=== PATIENT | female | born 1965 | race Caucasian/White ===

== ENCOUNTER 2020-02-12 15:22 | Emergency (ER) | payer OTHER ==
[2020-02-12] MEDS ORDERED: NA CHLORIDE 0.9% 1,000 ML ONE (16:08)
[2020-02-12 16:29] LABS: Absolute Lymphocytes (CBC) 1.9 K/uL (0.7-4.9); Basophils % 1.3 % (0-1.3); Hematocrit 42.3 % (36.0-45.0); Lymphocytes % 27.7 % (15.3-44.8); MPV 10.1 fL (7.6-11.3)
[2020-02-12 16:47] LABS: ALT/SGPT 29 U/L (12-78); AST/SGOT 14 U/L (15-37); Albumin 3.4 g/dL (3.4-5.0); Alkaline Phosphatase 117 U/L (45-117); BUN Blood Urea Nitrogen 11 mg/dL (7-18); Bicarbonate 27 mmol/L (21-32); Bilirubin Direct < 0.1 mg/dL (0-0.2); Bilirubin Total 0.2 mg/dL (0.2-1.0); Glucose Level 335 mg/dL (74-106); Lipase 142 U/L (73-393); Potassium 4.7 mmol/L (3.5-5.1); Protein, Total 7.6 g/dL (6.4-8.2); Sodium Level 137 mmol/L (136-145)
--- NOTE | 2020-02-12 17:29 | RAD REPORT ---
EXAM DESCRIPTION: CT - Abdomen Pelvis W Contrast - 02/12/2020 5:07 pm CLINICAL HISTORY: Abdominal pain COMPARISON: none. TECHNIQUE: Computed axial tomography of the abdomen pelvis was obtained. 100 cc Isovue-300 was admin istered intravenously. Oral contrast was not requested which limits evaluation of bowel. All CT scans are performed using dose optimization technique as appropriate and may include automated exposure control or mA/KV adjustment according to patient size. FINDINGS: Fatty liver The spleen, pancreas, adrenal and kidneys appear unremarkable. There is no evidence of diverticulitis. Normal appendix The wall of portions of the colon mildly to moderately thickened. This probably indicates a colitis IMPRESSION: Rskl-hv-[id number] colitis.
--- NOTE | 2020-02-12 17:39 | ER ---
Nurse's Notes [facility] Name: Maria Isabel Li Age: 54 yrs Sex: Female : 1965 Arrival Date: 02/12/2020 Time: 15:[address] Private MD: Diagnosis: Colitis;Hyperglycemia, unspecified Presentation: 02/11 15:28 Chief complaint: Patient states: dry cough, diarrhea, abd pain and fatigue that began ss 2-3 days ago. Coronavirus screen: Patient denies fever greater than 100.4F, cough, shortness of breath, or difficulty breathing. Proceed with normal triage process. Ebola Screen: Patient denies exposure to infectious person. Patient denies travel to an Ebola-affected area in the 21 days before illness onset. Initial Sepsis Screen: Does the patient meet any 2 criteria? HR > 90 bpm. Does the patient have a suspected source of infection? No. Patient's initial sepsis screen is negative. Risk Assessment: Do you want to hurt yourself or someone else? Patient reports no desire to harm self or others. 15:28 Method Of Arrival: Ambulatory ss 15:28 Acuity: ANT 3 ss 16:28 Onset of symptoms was February 09, 2020. vc Triage Assessment: 16:26 General: Appears in no apparent distress. uncomfortable, ill, Behavior is calm, vc cooperative, appropriate for age. Pain: Complains of pain in right lower quadrant. GI: Reports lower abdominal pain, bloating, diarrhea. Historical: - Allergies: 15:58 PENICILLINS; ss 15:58 ACETAMINOPHEN; ss - PMHx: 15:58 Chronic pain; Diabetes - IDDM; Fibromyalgia; High Cholesterol; ss - Immunization history:: Adult Immunizations up to date. - Social history:: Smoking status: Patient denies any tobacco usage or history of. Screenin:25 Abuse screen: Denies threats or abuse. Nutritional screening: No deficits noted. vc Tuberculosis screening: No symptoms or risk factors identified. Fall Risk None identified. Assessment: 16:27 GI: Bowel sounds present X 4 quads. Abd is soft Abdomen is tender to palpation X 4 vc quads. 16:30 General: Appears in no apparent distress. uncomfortable, ill, Behavior is calm, vc cooperative, appropriate for age. Pain: Complains of pain in right lower quadrant. Neuro: Level of Consciousness is awake, alert, obeys commands, Oriented to person, place, time, situation. Cardiovascular: Patient's skin is warm and dry. Respiratory: Airway is patent Respiratory effort is even, unlabored, Respiratory pattern is regular, symmetrical. : No signs and/or symptoms were reported regarding the genitourinary system. EENT: No signs and/or symptoms were reported regarding the EENT system. Derm: No signs and/or symptoms reported regarding the dermatologic system. Musculoskeletal: Range of motion: intact in all extremities. 17:30 Reassessment: Patient appears in no apparent distress at this time. Patient and/or vc family updated on plan of care and expected duration. Pain level reassessed. Patient is alert, oriented x 3, equal unlabored respirations, skin warm/dry/pink. 18:30 Reassessment: discharge pending fluids infusing. vc 18:30 Reassessment: Patient and/or family updated on plan of care and expected duration. Pain vc level reassessed. Patient is alert, oriented x 3, equal unlabored respirations, skin warm/dry/pink. Patient denies pain at this time. Patient states feeling better. Patient states symptoms have improved. Vital Signs: 15:28 BP 91 / 67; Pulse 116; Resp 16; Temp 98.3; Pulse Ox 98% on R/A; Weight 99.79 kg; Height ss 5 ft. 6 in. (167.64 cm); Pain 4/10; 16:30 BP 114 / 84; Pulse 95; Resp 15; Pulse Ox 98% on R/A; vc 18:00 BP 110 / 82; Pulse 89; Pulse Ox 100% on R/A; vc 15:28 Body Mass Index 35.51 (99.79 kg, 167.64 cm) ED Course: 15:26 Patient arrived in ED. mr 15:32 [facility] kb 15:32 Ridge Macias MD is Attending Physician. kb 15:52 Saniya Martínez RN is Primary Nurse. vc 15:58 Triage completed. ss 15:58 Arm band placed on right wrist. ss 16:29 Patient has correct armband on for positive identification. Placed in gown. Bed in low vc position. Pulse ox on. NIBP on. Warm blanket given. 17:08 CT completed. Patient tolerated procedure well. Patient moved back from CT. ma 17:09 CT Abd/Pelvis - IV Contrast Only In Process Unspecified. EDMS 18:42 No provider procedures requiring assistance completed. IV discontinued, intact, vc bleeding controlled, No redness/swelling at site. Pressure dressing applied. Administered Medications: 16:23 Drug: NS 0.9% 1000 ml Route: IV; Rate: 1000 ml; Site: right antecubital; vc 18:00 Follow up: IV Status: Completed infusion; IV Intake: 1000ml vc 17:45 Drug: Flagyl 500 mg Route: PO; ca1 18:00 Follow up: Response: No adverse reaction vc 17:55 Drug: Cipro 500 mg Route: PO; ca1 18:00 Follow up: Response: No adverse reaction vc Outcome: 17:38 Discharge ordered by MD. kb 18:42 Discharged to home ambulatory. vc 18:42 Condition: good 18:42 Discharge instructions given to patient, Instructed on discharge instructions, follow up and referral plans. medication usage, Demonstrated understanding of instructions, follow-up care, medications, Prescriptions given X 4. 18:45 Patient left the ED. vc Signatures: Dispatcher [employer] EDMS [place], BRIDGE IRONWORKER-C BRIDGE IRONWORKER-Ckb Teodoro Anita mr Sirisha Gerard, HUGH RN ss Abdiaziz Saldana Cheryl RN RN ca1 Saniya Martínez RN RN vc Corrections: (The following items were deleted from the chart) 15:58 15:28 Acuity: ANT 4 ss ss 20:00 19:00 Patient left the ED. vc vc
--- NOTE | 2020-02-12 17:39 | EDPHYS ---
Physician Documentation [facility] Name: Maria Isabel Li Age: 54 yrs Sex: Female : 1965 Arrival Date: 02/12/2020 Time: 15:[address] Private MD: ED Physician Ridge Macias HPI: 02/11 16:52 This 54 yrs old Female presents to ER via Ambulatory with complaints of kb Cough, Abdominal Pain, Diarrhea. 16:53 The patient presents with abdominal pain that is diffuse. Onset: The symptoms/episode kb began/occurred yesterday. The symptoms do not radiate. Associated signs and symptoms: Pertinent positives: diarrhea. The symptoms are described as crampy. Modifying factors: The symptoms are alleviated by nothing, the symptoms are aggravated by nothing. Severity of pain: At its worst the pain was moderate in the emergency department the pain is unchanged. The patient has not experienced similar symptoms in the past. The patient has not recently seen a physician. Pt reports abd cramping and diarrhea that started yesterday morning. Reports dry cough for 3 days. Denies fever, travel or sick contacts. . Historical: - Allergies: 15:58 PENICILLINS; ss 15:58 ACETAMINOPHEN; ss - PMHx: 15:58 Chronic pain; Diabetes - IDDM; Fibromyalgia; High Cholesterol; ss - Immunization history:: Adult Immunizations up to date. - Social history:: Smoking status: Patient denies any tobacco usage or history of. ROS: 16:51 Constitutional: Negative for fever, chills, and weight loss, ENT: Negative for injury, kb pain, and discharge, Neck: Negative for injury, pain, and swelling, Cardiovascular: Negative for chest pain, palpitations, and edema, Back: Negative for injury and pain, : Negative for injury, bleeding, discharge, and swelling, MS/Extremity: Negative for injury and deformity, Skin: Negative for injury, rash, and discoloration, Neuro: Negative for headache, weakness, numbness, tingling, and seizure. 16:51 Respiratory: Positive for cough, Negative for dyspnea on exertion, hemoptysis, orthopnea, pleurisy, shortness of breath, sputum production, wheezing. 16:51 Abdomen/GI: Positive for abdominal pain, diarrhea, Negative for nausea, vomiting. Exam: 16:52 Constitutional: This is a well developed, well nourished patient who is awake, alert, kb and in no acute distress. Head/Face: Normocephalic, atraumatic. ENT: Nares patent. No nasal discharge, no septal abnormalities noted. Tympanic membranes are normal and external auditory canals are clear. Oropharynx with no redness, swelling, or masses, exudates, or evidence of obstruction, uvula midline. Mucous membranes moist. Neck: Trachea midline, no thyromegaly or masses palpated, and no cervical lymphadenopathy. Supple, full range of motion without nuchal rigidity, or vertebral point tenderness. No Meningismus. Chest/axilla: Normal chest wall appearance and motion. Nontender with no deformity. No lesions are appreciated. Cardiovascular: Regular rate and rhythm with a normal S1 and S2. No gallops, murmurs, or rubs. Normal PMI, no JVD. No pulse deficits. Respiratory: Lungs have equal breath sounds bilaterally, clear to auscultation and percussion. No rales, rhonchi or wheezes noted. No increased work of breathing, no retractions or nasal flaring. Back: No spinal tenderness. No costovertebral tenderness. Full range of motion. Skin: Warm, dry with normal turgor. Normal color with no rashes, no lesions, and no evidence of cellulitis. MS/ Extremity: Pulses equal, no cyanosis. Neurovascular intact. Full, normal range of motion. Neuro: Awake and alert, GCS 15, oriented to person, place, time, and situation. Cranial nerves II-XII grossly intact. Motor strength 5/5 in all extremities. Sensory grossly intact. Cerebellar exam normal. Normal gait. 16:52 Abdomen/GI: Inspection: abdomen appears normal, Bowel sounds: normal, in all quadrants, Palpation: soft, in all quadrants, moderate abdominal tenderness, in the right upper quadrant and right lower quadrant. Vital Signs: 15:28 BP 91 / 67; Pulse 116; Resp 16; Temp 98.3; Pulse Ox 98% on R/A; Weight 99.79 kg; Height ss 5 ft. 6 in. (167.64 cm); Pain 4/10; 16:30 BP 114 / 84; Pulse 95; Resp 15; Pulse Ox 98% on R/A; vc 18:00 BP 110 / 82; Pulse 89; Pulse Ox 100% on R/A; vc 15:28 Body Mass Index 35.51 (99.79 kg, 167.64 cm) ss MDM: 15:32 Patient medically screened. kb 16:51 Data reviewed: vital signs, nurses notes. Data interpreted: Pulse oximetry: on room air kb is 98 %. Interpretation: normal. 17:38 Counseling: I had a detailed discussion with the patient and/or guardian regarding: the kb historical points, exam findings, and any diagnostic results supporting the discharge/admit diagnosis, lab results, radiology results, the need for outpatient follow up, a family practitioner, to return to the emergency department if symptoms worsen or persist or if there are any questions or concerns that arise at home. 02/11 15:59 Order name: Flu; Complete Time: 16:49 kb 02/11 15:59 Order name: Basic Metabolic Panel; Complete Time: 16:49 kb 02/11 15:59 Order name: CBC with Diff; Complete Time: 16:49 kb 02/11 15:59 Order name: Hepatic Function; Complete Time: 16:49 kb 02/11 15:59 Order name: Lipase; Complete Time: 16:49 kb 02/11 17:49 Order name: Urine Dipstick--Ancillary (enter results); Complete Time: 18:19 mt 02/11 15:59 Order name: IV Saline Lock; Complete Time: 16:24 kb 02/11 15:59 Order name: Labs collected and sent; Complete Time: 16:24 kb 02/11 16:50 Order name: CT Abd/Pelvis - IV Contrast Only; Complete Time: 17:35 kb 02/11 16:57 Order name: Urine Dipstick-Ancillary (obtain specimen); Complete Time: 17:48 kb Administered Medications: 16:23 Drug: NS 0.9% 1000 ml Route: IV; Rate: 1000 ml; Site: right antecubital; vc 18:00 Follow up: IV Status: Completed infusion; IV Intake: 1000ml vc 17:45 Drug: Flagyl 500 mg Route: PO; ca1 18:00 Follow up: Response: No adverse reaction vc 17:55 Drug: Cipro 500 mg Route: PO; ca1 18:00 Follow up: Response: No adverse reaction vc Disposition: 02/12/20 17:38 Discharged to Home. Impression: Colitis, Hyperglycemia, unspecified. - Condition is Stable. - Discharge Instructions: Hyperglycemia, Pmbj-in-Ubnt, Colitis. - Prescriptions for Bentyl 20 mg Oral Tablet - take 1 tablet by ORAL route every 6 hours As needed; 20 tablet. Cipro 500 mg Oral Tablet - take 1 tablet by ORAL route every 12 hours for 10 days; 20 tablet. Flagyl 500 mg Oral Tablet - take 1 tablet by ORAL route every 8 hours for 10 days; 30 tablet. Zofran 4 mg Oral Tablet - take 1 tablet by ORAL route every 6 hours As needed; 20 tablet. - Medication Reconciliation Form, Thank You Letter, Antibiotic Education, Prescription Opioid Use form. - Follow up: Emergency Department; When: As needed; Reason: Worsening of condition. Follow up: Private Physician; When: 2 - 3 days; Reason: Recheck today's complaints, Continuance of care, Re-evaluation by your physician. Addendum: 02/14/2020 13:57 Co-signature as Attending Physician, Ridge Macias MD I agree with the assessment and k dr plan of care. Signatures: Dispatcher [employer] EDMS [place], HOT KNIFE FOXING CUTTER-C HOT KNIFE FOXING CUTTER-Ckb Ridge Macias MD MD [facility] Sirisha Gerard RN RN ss Annika Alcocer RN RN ca1 Saniya Martínez RN RN vc Corrections: (The following items were deleted from the chart) 02/11 19:00 17:38 02/12/2020 17:38 Discharged to Home. Impression: Colitis; Hyperglycemia, vc unspecified. Condition is Stable. Forms are Medication Reconciliation Form, Thank You Letter, Antibiotic Education, Prescription Opioid Use. Follow up: Emergency Department; When: As needed; Reason: Worsening of condition. Follow up: Private Physician; When: 2 - 3 days; Reason: Recheck today's complaints, Continuance of care, Re-evaluation by your physician. kb
[2020-02-12] MEDS ORDERED: CIPROFLOXACIN HCL 500 MG TAB ONE (18:06)
[2020-02-12] MEDS ORDERED: metroNIDAZOLE 500 MG TABLET ONE (18:06)
[2020-02-12 18:16] LABS: Urine Blood 2+ (NEG); Urine Glucose TRACE (NEG); Urine Protein NEGATIVE (NEG)
[2020-02-12 19:07] VITALS: TEMP 98.3; O2SAT 98
[2020-02-12 19:08] VITALS: BP 114/84
== END 2020-02-12 19:00 | disposition home or self-care (01) ==
LOC: ER 15:22
DX: K52.9 Noninfective gastroenteritis and colitis, unspecified (principal); E11.65 Type 2 diabetes mellitus with hyperglycemia; Z88.0 Allergy status to penicillin; Z88.6 Allergy status to analgesic agent
CPT/HCPCS: 96361; 85025; 80048; 36415; 80076; 81003; 83690; 87804 ×2; 74177; 96360; 99284; Q9967; J7030

== ENCOUNTER 2022-04-24 15:08 | Emergency (ER) | payer OTHER ==
[2022-04-24 15:39] LABS: Absolute Lymphocytes (CBC) 1.6 K/uL (0.7-4.9); Hematocrit 46.3 % (36.0-45.0); Lymphocytes % 24.4 % (15.3-44.8); MPV 9.6 fL (7.6-11.3); RBC Red Blood Cell Count 4.97 M/uL (3.86-4.86)
[2022-04-24] MEDS ORDERED: ONDANSETRON 4 MG/2 ML VIAL ONE (16:08)
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
[2022-04-24 17:50] VITALS: BP 133/71; O2SAT 97
[2022-04-24 18:00] VITALS: TEMP 98.4
--- NOTE | 2022-04-25 07:55 | EKG ---
Test Date: 2022-04-24 Test Time: 15:06:03 Logistics Analytics Manager: BRANDI MEASUREMENT RESULTS: Intervals: Rate: 80 NV: 160 QRSD: 84 QT: 372 QTc: 429 Cooks: P: 48 NV: 160 QRS: 10 T: 7 INTERPRETIVE STATEMENTS: Normal sinus rhythm Anterior infarct, age undetermined Abnormal ECG No previous ECG available for comparison Electronically Signed On 04-25-22 07:52:37 CDT by Jamal Huerta
== END 2022-04-24 17:14 | disposition home or self-care (01) ==
LOC: ER 15:08
DX: S29.012A Strain of muscle and tendon of back wall of thorax, initial encounter (principal); S39.012A Strain of muscle, fascia and tendon of lower back, initial encounter; S16.1XXA Strain of muscle, fascia and tendon at neck level, initial encounter; V49.40XA Driver injured in collision with unspecified motor vehicles in traffic accident, initial encounter; E11.9 Type 2 diabetes mellitus without complications; E78.00 Pure hypercholesterolemia, unspecified; G89.29 Other chronic pain; Z88.0 Allergy status to penicillin; Z88.6 Allergy status to analgesic agent
CPT/HCPCS: 93005; 85025; 80048; 36415; 85610; 85730; 70450; 71250; 72125; J2405